=== PATIENT | male | born 1960 | race Caucasian/White ===

== ENCOUNTER → 2023-05-28 | Outpatient (CLI) | payer OTHER ==
--- NOTE | 2023-05-28 08:57 | Diagnostic Imaging Report ---
INDICATION: Right knee pain. Time of Exam: 8:49 AM FINDINGS: There is significant medial and patellofemoral compartment degenerative change with joint space narrowing and marginal spurring noted. Lateral compartments fairly well maintained. Articular surfaces are smooth. No fracture, dislocation or effusion is identified. IMPRESSION: Degenerative changes. No acute bony abnormality is detected. Dictated by: Dictated on workstation # [id number]
[2023-05-28 10:20] LABS: BASOPHILS % (AUTO) 1 % (0-10); EOSINOPHILS # (AUTO) 0.1 10^3/uL (0.0-0.3); EOSINOPHILS % (AUTO) 2 % (0-10); HEMATOCRIT 40 % (40-54); HEMOGLOBIN 14.1 g/dL (13.3-17.7); LYMPHOCYTES # (AUTO) 1.3 10^3/uL (1.0-4.0); LYMPHOCYTES % (AUTO) 23 % (12-44); MEAN CORPUSCULAR HEMOGLOBIN 33 pg (25-34); MEAN CORPUSCULAR HGB CONC 35 g/dL (32-36); MEAN CORPUSCULAR VOLUME 94 fL (80-99); MEAN PLATELET VOLUME 10.9 fL (9.0-12.2); MONOCYTES # (AUTO) 0.4 10^3/uL (0.0-1.0); MONOCYTES % (AUTO) 7 % (0-12); NEUTROPHILS % (AUTO) 68 % (42-75); PLATELET COUNT 179 10^3/uL (130-400); WHITE BLOOD COUNT 5.8 10^3/uL (4.3-11.0)
[2023-05-28 10:36] LABS: CLARITY,URINE CLEAR; COLOR,URINE YELLOW
[2023-05-28 10:37] LABS: BACTERIA,URINE NEGATIVE /HPF; BILIRUBIN,URINE NEGATIVE (NEGATIVE); GLUCOSE, URINE (UA) NEGATIVE (NEGATIVE); KETONES,URINE NEGATIVE (NEGATIVE); LEUKOCYTE ESTERASE ,URINE NEGATIVE (NEGATIVE); NITRITE,URINE NEGATIVE (NEGATIVE); PH,URINE 5.5 (5-9); PROTEIN,URINE NEGATIVE (NEGATIVE); WBC,URINE RARE /HPF
[2023-05-28 10:38] LABS: CALCIUM 9.4 MG/DL (8.5-10.1); CREATININE SERUM 1.68 MG/DL (0.60-1.30); POTASSIUM 4.6 MMOL/L (3.6-5.0)
--- NOTE | 2023-05-28 11:53 | Diagnostic Imaging Report ---
INDICATION: Preoperative evaluation prior to knee replacement COMPARISON: None FINDINGS: Frontal and lateral views of the chest demonstrate normal heart size and pulmonary vascularity. The lungs are clear. There are no signs of infiltrate, pleural effusions or pneumothoraces. The visualized osseous structures show no acute abnormalities. IMPRESSION: 1. No acute process. No signs of infiltrates, effusions or pneumothoraces. Dictated by: Dictated on workstation # [id number]
== END ==
LOC: ORTHO 08:38
PROVIDERS: ATTEND Orthopaedic Surgery
DX: Z01.89 Encounter for other specified special examinations (principal); Z01.818 Encounter for other preprocedural examination; M17.11 Unilateral primary osteoarthritis, right knee
CPT/HCPCS: 71046; 73564; 80048; 81000; 85025; G0463; 36415; 99203

== ENCOUNTER → 2023-06-08 | Outpatient (CLI) | payer OTHER ==
[~2023-06-08] VITALS: Ht 172.7 cm; Wt 97.3 kg
[~2023-06-08] MED LIST: ACET-2267 PO; ASPI-1238 PO; BETH25TA2 PO; LOSA25TA41 PO; OXC5T PO; OXYC10TA7 PO; TMSL.4C PO
[2023-06-08 13:11] VITALS: BP 144/82
== END | disposition home or self-care (01) ==
LOC: PREOP 12:57
PROVIDERS: ATTEND Orthopaedic Surgery
DX: Z01.818 Encounter for other preprocedural examination (principal)
CPT/HCPCS: 87081

== ENCOUNTER 2023-06-15 06:14 | Day surgery (SDC) | payer OTHER ==
[2023-06-15] VITALS (13 sets, daily range): BP systolic 135–189; BP diastolic 76–103
[~2023-06-15] VITALS: Ht 172.7 cm; Wt 97.3 kg
[~2023-06-15 06:14] MED LIST changes: -ACET-2267 PO; -ASPI-1238 PO; -BETH25TA2 PO; -OXC5T PO; -OXYC10TA7 PO; -TMSL.4C PO
[2023-06-15] MEDS ORDERED: LACTATED RINGERS 1,000 ML 1,000 ML IV PRN (06:30)
[2023-06-15] MEDS ORDERED: ceFAZolin INJECTION 2,000 MG in NS (IVPB) 50 ML 50 ML IV ONE (06:30)
[2023-06-15] MEDS ORDERED: fentaNYL INJECTION 100 MCG/2 ML VIAL ONE (06:34)
[2023-06-15] MEDS ORDERED: MIDAZOLAM INJ 2 MG/2 ML VIAL ONE (06:34)
[2023-06-15] MEDS ORDERED: LIDOCAINE PF 2% 5 ML VIAL ONE (06:39)
[2023-06-15] MEDS ORDERED: ROPIVACAINE 5 MG/ML 30ML VIAL ONE (06:39)
[2023-06-15] MEDS ORDERED: proPOfol INJECTION 200 MG/20 ML VIAL IV ONE ×2 (07:04→07:05)
[2023-06-15] MEDS ORDERED: ROCURONIUM 50 MG/5 ML VIAL IV ONE ×2 (07:05→07:08)
[2023-06-15] MEDS ORDERED: dexAMETHasone INJ 10 MG/ML 1 ML VIAL ONE (07:05)
[2023-06-15] MEDS ORDERED: ONDANSETRON INJECTION 4 MG/2 ML (SDV) ONE (07:05)
[2023-06-15] MEDS ORDERED: GLYCOPYRROLATE INJ 0.2 MG/ML 2 ML VIAL ONE (07:05)
[2023-06-15] MEDS ORDERED: NEOSTIGMINE 1 MG/1ML 10 ML VIAL ONE (07:05)
[2023-06-15] MEDS ORDERED: TRANEXAMIC ACID 100 MG/ML 10 ML INJECTION ONE (07:05)
--- NOTE | 2023-06-15 07:15 | Progress Note-Pre Operative ---
Pre-Operative Progress Note Date of Available H&P: May 28, 2023 Date H&P Reviewed: Jun 15, 2023 Time H&P Reviewed: 07:05 History & Physical: H&P Reviewed, Patient Examed, No changes noted Pre-Operative Diagnosis: Right Knee Primary Osteoarthritis LUIS MASSEY MD Jun 15, 2023 07:15
[2023-06-15] MEDS ORDERED: HYDROmorphone INJECTION 2 MG/ML VIAL ONE (07:54)
[2023-06-15] MEDS ORDERED: SEVOFLURANE (ULTANE) 15 ML INHAL SOLN ONE (09:19)
--- NOTE | 2023-06-15 09:33 | Operative Report - Ortho ---
Operative Report Surgeon (s)/[employer] Chemist (s) Surgeon LUIS MASSEY MD [employer] Chemist n/a Pre-Operative Diagnosis Right Knee Primary Osteoarthritis Post-Operative Diagnosis same Operative Report Date of Procedure: Jun 15, 2023 Name of Procedure Performed: Right Total Knee Arthroplasty Description & Findings After obtaining informed consent and marking the patient in the preoperative holding area, the patient did receive IV antibiotics. Patient was taken to the operating room and anesthesia was induced. Surgical timeout was taken. The right lower extremity was prepped and draped in the usual sterile fashion. Incision was made and carried down to fascia. Arthrotomy was performed on the medial side of the patella. Patella was retracted laterally and knee was flexed. Found to have circumferential osteophtye around the distal femur as well as exposed bone in the medial compartment. Hole was made in the distal femur for the intramedullary distal femoral cutting guide. Resection was made then the femur was sized as a 5. 4-in-1 block for a size [address]. Anterior cut was made and there was no notch. Posterior cut was made followed by the chamfers. Box cut was performed. Lug holes were drilled. Attention was turned to the tibial side, extramedullary tibial guide was put into place and aligned with the tibial crest. It was set to take 2 mm off of the affected medial side. Drop sedrick was used to confirm alignment. Resection was made and was parallel to the joint line. Tibial bone block was removed. Lamina non destructive evaluation specialist was put into place and the menisci and posterior osteophytes were removed. The knee was trialed with a size 5 femur and a size 5 tibia with a 9 mm poly trial. It was found to come out to full extension and flexed beyond 120 degrees. It was stable to varus and valgus stress throughout its range of motion. This was accepted. Knee was brought out into extension and the patella was measured at 20 mm of thickness and had intagt cartilage; osteophytes were removed from around the perimeter of the patella. Patella tracked well. Trial implants were removed. Tibial tray was pinned and punched. Tibial press fit guide was placed and holes were drilled. The cut bone surfaces were lavaged with pulsatile normal saline. Implants were opened and assembled on the back table. A size 5 press fit tibial component was impacted into place. Cement was mixed and applied to the implant as well as the cut bone surface. A size 5 fit femoral component was impacted into place and excess cement was removed using a freer. Tibial tray was lavaged with saline. A 9 mm thick polyethylene component was locked into placed and the locking mechanism was checked. Knee was brought into extension. Irrisept soak was performed and then, the knee was irrigated with normal saline. The knee was once again trialed; found to come to full extension, flexed beyond 120 degrees, and was stable to varus and valgus stress. Tourniquet was dropped and electrocautery was used for hemostasis. Fascial layer was closed with #2 Stratafix. The subcutaneous layer was closed with 2-0 Vicryl. The skin was closed with a running subcuticular 3-0 V-loc. Wound was dressed with steri- strips, xeroform, 4x4s, ABD, webril, and REBEL wrap. Patient tolerated the procedure well and was stable to the recovery room. Anesthesia Type General Estimated Blood Loss 100 mL Specimen(s) collected/removed None LUIS MASSEY MD Jun 15, 2023 09:33
[2023-06-15] MEDS ORDERED: MILK OF MAGNESIA 400 MG/5 ML 30 ML UDC PO PRN (09:45)
[2023-06-15] MEDS ORDERED: HYDROmorphone INJECTION 2 MG/ML VIAL IV ONE (09:45)
[2023-06-15] MEDS ORDERED: PROMETHAZINE INJ 25 MG/ML VIAL IVP PRN (09:45)
[2023-06-15] MEDS ORDERED: morphine INJ 10 MG/ML 1ML (SYR OR VIAL) IVP ONE (09:45)
[2023-06-15] MEDS ORDERED: BISACODYL 5 MG TABLET PO PRN (09:45)
--- NOTE | 2023-06-15 09:59 | Diagnostic Imaging Report ---
EXAMINATION: Right knee 1 or 2 views HISTORY: Post-Op Knee Surgery-Rt Knee replacement COMPARISON: None available. FINDINGS: Postsurgical changes from right knee arthroplasty. While Total right knee arthroplasty. No periprosthetic loosening or fracture. Subcutaneous air within the visualized soft tissue. Vascular calcifications. IMPRESSION: Well aligned total right knee arthroplasty. Dictated by: Dictated on workstation # [id number]
[2023-06-15] MEDS ORDERED: morphine INJ 4 MG/ML 1 ML (VIAL/SYRINGE) ONE (10:52)
[2023-06-15] MEDS: morphine INJ 4 MG/ML 1 ML (VIAL/SYRINGE) IVP PRN ×7 (10:55→23:39)
--- NOTE | 2023-06-15 12:25 | Consultation ---
ANA TORRES 06/15/23 1225: HPI History of Present Illness: HPI/Chief Complaint 06/15/2023: CC: R-TKA HPI: García, 63M, is in hospital due to R-TKA. He notes that he is not in pain. He is sleepy and not able to keep his eyes open for very long. He denies any N/V. He is glad that his family is his bedside. He notes some mild pruritus. He has no other concerns. He said that as he has been talking that he can feel some discomfort with his knee. He notes that the cooling device makes it feel better. Source: patient, family Date Seen 06/15/23 Attending Physician Rola Lemon PCP Admitting Physician: Attending Physician: Donal Starkey MD Referring Physician Date of Admission Home Medications & Allergies Home Medications Reviewed patient Home Medication Reconciliation performed by pharmacy medication reconciliations painting technician and/or nursing. Patients Allergies have been reviewed. Allergies Allergies Coded Allergies ondansetron (Verified Allergy, Unknown, Vomiting, 06/08/23) Past Dzaidep-Hoiqzz-Ooetmv Hx Patient Social History Marrital Status: Employed/Student: employed Tobacco Use?: No Smoking Status: Former Smoker Use of E-Cig and/or Vaping dev: No Substance use?: No Alcohol Use?: No Seasonal Allergies Seasonal Allergies: No Current Status Advance Directives: No Communicates: Verbally Primary Language: Azeri Preferred Spoken Language: Azeri Is interpretation needed?: No Sensory deficits: Vision impairment, Other (dentures ) Past Medical History Surgeries: Gallbladder, Joint Replacement Hypertension Renal Failure Arthritis Oral (posterior tongue, august 2018) What Type of Treatment Did You: Chemotherapy, Radiation, Surgical Intervention (2017 ) Anxiety Eczema (scalp ) Blood Disorders: No Adverse Reaction/Blood Tranf: No Family Medical History Cancer, Diabetes, Stroke Review of Systems Constitutional: see HPI; No diaphoresis, No fever EENTM: no symptoms reported, hoarseness; No eye pain, No tearing, No vision loss Respiratory: No cough, No short of breath, No wheezing Cardiovascular: no symptoms reported; No chest pain, No edema, No Hx of Intervention Gastrointestinal: no symptoms reported; No abdominal pain, No heartburn; loss o f appetite Genitourinary: no symptoms reported, other (indwelling catherter in place ) Musculoskeletal: see HPI, joint pain Skin: see HPI; No change in color, No dryness, No hx of skin cancer; pruritus Psychiatric/Neurological: Anxiety; Denies Headache, Denies Numbness Physical Exam Physical Exam Vital Signs Vital Signs - First Documented 06/15/23 06:15 Temp 36.3 Pulse 60 Resp 18 B/P (MAP) 145/78 (100) Pulse Ox 96 O2 Delivery Room Air Capillary Refill : Less Than 3 Seconds Height, Weight, BMI Height: '" Weight: lbs. oz. kg; 32.62 BMI Method: General Appearance: No Apparent Distress, WD/WN Eyes: Bilateral Eye Normal Inspection, Bilateral Eye PERRL, Bilateral Eye EOMI HEENT: PERRL/EOMI, Normal ENT Inspection, Pharynx Normal; No Pale Conjunctivae (L), No Pale Conjunctivae (R) Neck: Full Range of Motion, Normal Inspection, Non Tender, Supple Respiratory: Chest Non Tender, Lungs Clear, Normal Breath Sounds, No Accessory Muscle Use, No Respiratory Distress Cardiovascular: No Edema, No Gallop, No JVD, No Murmur, Normal Peripheral Pulses, Bradycardia (slow, regular rhythm ) Gastrointestinal: Normal Bowel Sounds, No Organomegaly, No Pulsatile Mass, Non Tender, Soft Rectal: Deferred Extremity: Normal Capillary Refill, Normal Inspection, Non Tender, No Calf Tenderness, No Pedal Edema Neurologic/Psychiatric: Alert, Oriented x3, No Motor/Sensory Deficits, Other (waking up from anesthesia ) Skin: Normal Color, Warm/Dry Lymphatic: No Adenopathy Results Results/Procedures Labs Patient resulted labs reviewed. Assessment/Plan Assessment and Plan Assess & Plan/Chief Complaint 06/15/2023: A/P: -Status post operative R- TKA * pain control (morphine), ice, PT/OT * follow surgeon orders, follow up * DVT prophylaxis -Bradycardia * monitor, likely due to anesthesia -HTN * Losartan, monitor vitals -DVT prophylaxis * SCD, ambulate as tolerated, MONICA Pastrana DO 06/15/232045: HPI History of Present Illness: HPI/Chief Complaint CC: Right TKA HPI: This is a 63yoWM presents to 408 s/p right TKA uncomplicated by Dr Starkey. Currently he is without complaints. Heart murmur noted but he was unaware he had a murmur. Source: patient, family Exam Limitations: no limitations Past Wtyjhzi-Xjmzab-Bjyyay Hx Patient Social History Marrital Status: Employed/Student: employed Review of Systems Constitutional: see HPI Musculoskeletal: joint pain Physical Exam Physical Exam General Appearance: No Apparent Distress, WD/WN, Chronically ill Respiratory: Lungs Clear, Normal Breath Sounds Cardiovascular: Regular Rate, Rhythm, Systolic Murmur Neurologic/Psychiatric: Alert, Oriented x3 Assessment/Plan Assessment and Plan Assess & Plan/Chief Complaint Pain control Monitor labs Supervisory-Addendum Brief Verification & Attestation Participated in pt care: history, MDM, physical Personally performed: exam, history, MDM, supervision of care Care discussed with: Medical Student Procedures: n/a Results interpretation: Verified all documentation Verification and Attestation of Medical Student E/M Service A medical student performed and documented this service in my presence. I reviewed and verified all information documented by the medical student and made modifications to such information, when appropriate. I personally performed the physical exam and medical decision making. Monica Chavez, Jun 15, 2023,20:42 ANA TORRES Jun 15, 2023 12:25 MONICA CHAVEZ DO Jun 15, 2023 20:46
[2023-06-15] MEDS: oxyCODONE IMMEDIATE RELEASE 5 MG TABLET PO PRN ×3 (13:10→21:45)
[2023-06-15] MEDS: ACETAMINOPHEN 500 MG TABLET PO PRN ×2 (13:10→19:53)
[2023-06-15] MEDS: NS IV 1000 ML 1,000 ML IV SCH ×2 (13:10→19:46)
--- NOTE | 2023-06-15 14:21 | Physical Therapy Evaluation ---
PT Evaluation-General Medical Diagnosis Admission Date June 15, 2023 Medical Diagnosis: right knee OA Onset Date: Jun 15, 2023 Therapy Diagnosis Therapy Diagnosis: impaired mobility/weakness Precautions Precautions/Isolations: Fall Prevention, Standard Precautions Referral Physician: Jaky Reason for Referral: Evaluation/Treatment Medical History Current History s/p elective right TKR Reviewed History: Yes Social History Home: Single Level Current Living Status: Spouse Entry Into Home: Stairs With Railing PT Steps Into Home: 2 Prior Prior Level of Function SCALE: Activities may be completed with or without assistive devices. 8-Hyrzhuqwry-ggplvrz completes the activity by him/herself with no assistance from a helper. 5-Set-up or Clean-up Assistance-helper sets up or cleans up; patient completes activity. [place] assists only prior to or following the activity. 4-Supervision or Touching Assistance-helper provides verbal cues and/or touching/steadying and/or contact guard assistance as patient completes activity. Assistance may be provided throughout the activity or intermittently. 3-Partial/Moderate Assistance-helper does LESS THAN HALF the effort. [place] lifts, holds or supports trunk or limbs, but provides less than half the effort. 2-Substantial/Maximal Assistance-helper does MORE THAN HALF the effort. [place] lifts or holds trunk or limbs and provides more than half the effort. 0-Otiwznhwb-dalzno does ALL the effort. Patient does none of the effort to complete the activity. Or, the assistance of 2 or more helpers is required for the patient to complete the activity. If activity was not attempted, code reason: 7-Patient Refused. 9-Not Applicable-not attempted and the patient did not perform the activity before the current illness, exacerbation or injury. 10-Not Attempted due to Environmental Limitations-(lack of equipment, weather restraints, etc.). 88-Not Attempted due to Medical Conditions or Safety Concerns. Bed Mobility: 6 Transfers (B,C,W/C): 6 Gait: 6 Stairs: 6 Indoor Mobility (Ambulation): Independent Stairs: Independent Prior Devices Use: None PT Evaluation-Current Subjective Patient agrees to PT. Family present Objective Patient Orientation: Normal For Age Attachments: Mayo Catheter, IV ROM/Strength ROM Lower Extremities right knee flexion 30 degrees/left LE WFL Strength Lower Extremities right LE 3/5 grossly/left LE 5/5 grossly Integumentary/Posture Bladder Incontinence: Mayo Cath Posture WFL Neuromuscular (Tone, Coordination, Reflexes) grossly intact Sensory Vision: Functional Hearing: Functional Transfers Sit to Lying (QC): 6 Lying to Sitting/Side of Bed(Q: 6 Sit to Stand (QC): 4 Gait Mode of Locomotion: Walk Anticipated Mode of Locomotion: Walk Walk 10 feet (QC): 4 Walk 50 ft with 2 Turns(QC): 4 Distance: 50' Gait Assistive Device: FWW Comments/Gait Description slow, antalgic Balance Sitting Static: Normal Sitting Dynamic: Normal Standing Static: Good Standing Dynamic: Good Assessment/Needs Patient will benefit from skilled PT to address functional strength and mobility to improve current LOF to safely return to home at maximum LOF. Patient's right knee AROM limited due to pain. Pain medication issued. Rehab Potential: Good PT Vault Service Mechanic Goals Vault Service Mechanic Goals PT Vault Service Mechanic Goals Time Frame: Jun 20, 2023 Roll Left & Right (QC): 6 Sit to Lying (QC): 6 Lying-Sitting on Side/Bed(QC): 6 Sit to Stand (QC): 6 Chair/Yla-hq-Fwpji Xfer(QC): 6 Toilet Transfer (QC): 6 Walk 10 feet (QC): 6 Walk 50ft with 2 Turns (QC): 6 Walk 150 ft (QC): 6 1 Step (curb) (QC): 4 4 Steps (QC): 4 PT Plan Problem List Problem List: ROM Treatment/Plan Treatment Plan: Continue Plan of Care Treatment Plan: Education, Functional Activity Aníbal, Functional Strength, Gait, Safety, Therapeutic Exercise, Transfers Treatment Duration: Jun 20, 2023 Frequency: 11 times per week Estimated Hrs Per Day: .5 hour per day Patient and/or Family Agrees t: Yes Time Time In: 1335 Time Out: 1351 DATE: Jun 15, 2023 Total Billed Treatment Time: 16 [facility] Jun 15, 2023 14:21
[2023-06-15] MEDS ORDERED: ACET-2267 PO (14:22)
--- NOTE | 2023-06-15 15:14 | Occupational Therapy Eval ---
OT Evaluation-General/PLF Medical Diagnosis Admission Date Medical Diagnosis: right knee OA Onset Date: Jun 15, 2023 Therapy Diagnosis Therapy Diagnosis: s/p RTKA Precautions Precautions/Isolations: Fall Prevention, Standard Precautions Weight Bear Status Weight Bearing Restriction: Weight Bearing/Tolerated Location Restriction: R LE Referral Physician: Jaky Referral Reason: Self Care, Evaluation/Treatment Medical History Reviewed History: Yes Social History Home: Single Level Current Living Status: Spouse Entry Into Home: Stairs With Railing Steps Into Home: 2 ADL-Prior Level of Function SCALE: Activities may be completed with or without assistive devices. 3-Qwinzlqubw-orselkn completes the activity by him/herself with no assistance from a helper. 5-Set-up or Clean-up Assistance-helper sets up or cleans up; patient completes activity. [place] assists only prior to or following the activity. 4-Supervision or Touching Assistance-helper provides verbal cues and/or touching/steadying and/or contact guard assistance as patient completes activity. Assistance may be provided throughout the activity or intermittently. 3-Partial/Moderate Assistance-helper does LESS THAN HALF the effort. [place] lifts, holds or supports trunk or limbs, but provides less than half the effort. 2-Substantial/Maximal Assistance-helper does MORE THAN HALF the effort. [place] lifts or holds trunk or limbs and provides more than half the effort. 8-Xqzfysxdv-kzolxn does ALL the effort. Patient does none of the effort to complete the activity. Or, the assistance of 2 or more helpers is required for the patient to complete the activity. If activity was not attempted, code reason: 7-Patient Refused. 9-Not Applicable-not attempted and the patient did not perform the activity before the current illness, exacerbation or injury. 10-Not Attempted due to Environmental Limitations-(lack of equipment, weather restraints, etc.). 88-Not Attempted due to Medical Conditions or Safety Concerns. Self Care: Independent Functional Cognition: Independent Drive Self: Yes OT Current Status Subjective Agreeable to therapy Pain Numeric Pain Scale: 5-Moderate Pain Location: Right Location Body Site: Knee Mental Status/Objective Patient Orientation: Person, Place, Time, Situation Attachments: IV, Polar Pack, SCD's Current Hand Dominance: Right Upper Extremity ROM BUE ROM WFLS Upper Extremity Coordination WFLS Upper Extremity Sensation WFLS Upper Extremity Strength WFLS +4/5 ADL-Treatment Eating (QC): 6 Oral Hygiene (QC): 5 Shower/Bathe Self (QC): 7 Upper Body Dressing (QC): 5 Lower Body Dressing (QC): 5 On/Off Footwear (QC): 5 Toileting Hygiene (QC): 5 Education OT Patient Education: Modified ADL techniques, Progress toward Goal/Update tx plan, Purpose of tx/functional activities, Reviewed precautions, Rehab process, Safety issues, Transfer techniques, Use of adapted equipment Teaching Recipient: Patient Teaching Methods: Demonstration Response to Teaching: Return Demonstration OT Residential Goals Residential Goals 1=Demonstrate adherence to instructed precautions during ADL tasks. 2=Patient will verbalize/demonstrate understanding of assistive devices/modifications for ADL. 3=Patient will improve strength/tolerance for activity to enable patient to perform ADL's. OT Education/Plan Problem List/Assessment Assessment: No Skilled OT Needs ID'd Discharge Recommendations Plan/Recommendations: Discontinue OT Treatment Plan/Plan of Care Patient would benefit from OT for education, treatment and training to promote independence in ADL's, mobility, safety and/or upper extremity function for ADL's. Plan of Care: OTHER (EVAL ONLY) Treatment Duration: Jun 15, 2023 Frequency: 1 time per week Estimated Hrs Per Day: .25 hour per day Agreement: Yes Rehab Potential: Good Time Start Time: 13:38 Stop Time: 13:51 DATE: Jun 15, 2023 Total Time Billed (hr/min): 13 Billed Treatment Time EVL 13 min ANETA BAIG OT Jun 15, 2023 15:14
[2023-06-15] MEDS: ASPIRIN enteric coated 81MG TABLET PO SCH (17:51)
[2023-06-15] MEDS: ceFAZolin INJECTION 2,000 MG in NS (IVPB) 50 ML 50 ML IV SCH (19:47)
[2023-06-15] MEDS: CELECOXIB 100 MG CAPSULE PO SCH (19:53)
[2023-06-15] MEDS: DOCUSATE SODIUM 100 MG CAPSULE PO SCH (20:28)
[2023-06-16] MEDS: morphine INJ 4 MG/ML 1 ML (VIAL/SYRINGE) IVP PRN ×4 (03:08→15:44)
[2023-06-16] MEDS: oxyCODONE IMMEDIATE RELEASE 5 MG TABLET PO PRN ×5 (03:08→21:59)
[2023-06-16 03:30] VITALS: BP 138/87
[2023-06-16] MEDS: ceFAZolin INJECTION 2,000 MG in NS (IVPB) 50 ML 50 ML IV SCH (05:24)
[2023-06-16 05:53] LABS: BASOPHILS % (AUTO) 0 % (0-10); EOSINOPHILS % (AUTO) 0 % (0-10); HEMATOCRIT 34 % (40-54); HEMOGLOBIN 11.7 g/dL (13.3-17.7); LYMPHOCYTES % (AUTO) 8 % (12-44); MEAN CORPUSCULAR HEMOGLOBIN 33 pg (25-34); MEAN CORPUSCULAR HGB CONC 34 g/dL (32-36); MEAN CORPUSCULAR VOLUME 96 fL (80-99); MEAN PLATELET VOLUME 11.3 fL (9.0-12.2); MONOCYTES # (AUTO) 0.9 10^3/uL (0.0-1.0); MONOCYTES % (AUTO) 7 % (0-12); NEUTROPHILS # (AUTO) 11.2 10^3/uL (1.8-7.8); NEUTROPHILS % (AUTO) 85 % (42-75); PLATELET COUNT 175 10^3/uL (130-400); WHITE BLOOD COUNT 13.2 10^3/uL (4.3-11.0)
[2023-06-16 06:15] LABS: ALBUMIN 3.5 GM/DL (3.2-4.5)
[2023-06-16 06:16] LABS: POTASSIUM 4.6 MMOL/L (3.6-5.0)
[2023-06-16 06:17] LABS: CALCIUM 8.8 MG/DL (8.5-10.1)
[2023-06-16 06:18] LABS: BAND NEUTROPHILS 1 %; LYMPHOCYTES % (MANUAL) 9 %; NEUTROPHILS % (MANUAL) 83 %; TOTAL PROTEIN 6.5 GM/DL (6.4-8.2)
[2023-06-16 06:19] LABS: MONOCYTES % (MANUAL) 6 %; RBC MORPH NORMAL
[2023-06-16 06:20] LABS: BILIRUBIN,TOTAL 0.5 MG/DL (0.1-1.0)
[2023-06-16 06:22] LABS: CREATININE SERUM 1.95 MG/DL (0.60-1.30)
[2023-06-16 07:32] VITALS: BP 172/78
[2023-06-16] MEDS: DOCUSATE SODIUM 100 MG CAPSULE PO SCH ×2 (08:00→19:55)
[2023-06-16] MEDS: CELECOXIB 100 MG CAPSULE PO SCH ×2 (08:01→19:55)
[2023-06-16] MEDS: ASPIRIN enteric coated 81MG TABLET PO SCH ×2 (08:01→17:44)
--- NOTE | 2023-06-16 08:12 | Physical Therapy Daily Note ---
PT Daily Note-Current Subjective Patient agrees to PT. Pain Numeric Pain Scale: 7 Location: Right Location Body Site: Knee Pain Description: Acute Section J - Health Conditions 1. Rarely or not at all 2. Occasionally 3. Frequently 4. Almost constantly 8. Unable to answer Pain Effect on Sleep: 1 Pain Interference with Therapy: 1 Pain Interference w/Day-to-Day: 1 Transfers SCALE: Activities may be completed with or without assistive devices. 2-Muuutanhyl-vgfcbub completes the activity by him/herself with no assistance from a helper. 5-Set-up or Clean-up Assistance-helper sets up or cleans up; patient completes activity. [place] assists only prior to or following the activity. 4-Supervision or Touching Assistance-helper provides verbal cues and/or touching /steadying and/or contact guard assistance as patient completes activity. Assistance may be provided throughout the activity or intermittently. 3-Partial/Moderate Assistance-helper does LESS THAN HALF the effort. [place] lifts, holds or supports trunk or limbs, but provides less than half the effort. 2-Substantial/Maximal Assistance-helper does MORE THAN HALF the effort. [place] lifts or holds trunk or limbs and provides more than half the effort. 4-Whmrqurgy-zjzszp does ALL the effort. Patient does none of the effort to complete the activity. Or, the assistance of 2 or more helpers is required for the patient to complete the activity. If activity was not attempted, code reason: 7-Patient Refused. 9-Not Applicable-not attempted and the patient did not perform the activity before the current illness, exacerbation or injury. 10-Not Attempted due to Environmental Limitations-(lack of equipment, weather restraints, etc.). 88-Not Attempted due to Medical Conditions or Safety Concerns. Lying to Sitting/Side of Bed(Q: 6 Sit to Stand (QC): 5 Chair/Cdh-ua-Mmxsl Xfer(QC): 5 Gait Training Distance: 250' Walk 10 feet (QC): 5 Walk 50 ft with 2 Turns(QC): 5 Walk 150 ft (QC): 5 Gait Assistive Device: FWW slow, steady, antalgic Exercises Supine Ex: Quad Set, Heel Slides, Straight leg raise Supine Reps: 15 Seated Therapy Exercises: Long arc quads Seated Reps: 15 Assessment Patient tolerated treatment well and is up in recliner with needs met. Patient improving with AROM right knee flexion/extension. Increase activity as tolerated by patient. PT Assisted Goals Assisted Goals PT Assisted Goals Time Frame: Jun 20, 2023 Roll Left & Right (QC): 6 Sit to Lying (QC): 6 Lying-Sitting on Side/Bed(QC): 6 Sit to Stand (QC): 6 Chair/Mpu-si-Rewji Xfer(QC): 6 Toilet Transfer (QC): 6 Walk 10 feet (QC): 6 Walk 50ft with 2 Turns (QC): 6 Walk 150 ft (QC): 6 1 Step (curb) (QC): 4 4 Steps (QC): 4 PT Plan Treatment/Plan Treatment Plan: Continue Plan of Care Treatment Plan: Education, Functional Activity Aníbal, Functional Strength, Gait, Safety, Therapeutic Exercise, Transfers Treatment Duration: Jun 20, 2023 Frequency: 11 times per week Estimated Hrs Per Day: .5 hour per day Patient and/or Family Agrees t: Yes Time Time In: 705 Time Out: 730 DATE: Jun 16, 2023 Total Billed Treatment Time: 25 Total Billed Treatment 1 visit EX 15 min GT 10 min STEVEN JOSE PT Jun 16, 2023 08:12
--- NOTE | 2023-06-16 08:27 | Progress Note - Ortho ---
Progress Note Subjective Date of Exam 06/16/23 Chief Complaint POD #1 R TKA HPI/Events since last exam having some difficulty with pain control, had to have catheter replaced secondary to urinary retention, has done therapy this AM Review of Systems - Allergies: Coded Allergies: ondansetron (Verified Allergy, Unknown, Vomiting, 06/08/23) Home Meds Reported Medications Acetaminophen (Tylenol Extra Strength) 500 Mg Tablet, 1500 MG PO Q8H PRN for PAIN-MILD (1-4), TAB TAKES 3 (500MG) TABS 06/15/23 Losartan Potassium (Losartan Potassium) 25 Mg Tablet, 25 MG PO DAILY, TAB 06/08/23 Objective Exam R Knee: Dressing C/D/I, +DF of ankle, no s/s of DVT Vital Signs Vital Signs Date Time Temp Pulse Resp B/P (MAP) Pulse Ox O2 Delivery O2 Flow Rate FiO2 06/16/23 08:11 Room Air 06/16/23 07:32 36.9 74 16 172/78 (109) 96 Room Air 06/16/23 03:30 36.9 71 18 138/87 (104) 96 Room Air 06/15/23 23:35 36.9 89 18 135/76 (95) 96 Room Air 06/15/23 19:47 94 Room Air 06/15/23 19:37 36.3 62 18 146/80 (102) 92 Room Air 06/15/23 16:55 36.6 64 20 150/80 (103) 95 Room Air 06/15/23 12:00 36.2 61 18 156/80 (105) 94 Room Air 06/15/23 10:42 94 Room Air 06/15/23 10:25 Room Air 06/15/23 10:25 36.0 51 18 167/82 (110) 94 Room Air 06/15/23 10:25 36.6 18 174/79 (110) 94 Room Air 06/15/23 10:20 Room Air 06/15/23 10:20 18 168/78 (108) 94 Room Air 06/15/23 10:11 Room Air 06/15/23 10:10 18 172/77 (108) 94 Room Air 06/15/23 10:02 OxyMask 3.00 06/15/23 10:00 18 189/100 (129) 100 OxyMask 3.00 06/15/23 09:54 OxyMask 6.00 06/15/23 09:50 11 189/99 (129) 100 OxyMask 6.00 06/15/23 09:45 OxyMask 6.00 06/15/23 09:40 18 173/103 (126) 99 OxyMask 6.00 06/15/23 09:35 OxyMask 6.00 06/15/23 09:35 18 189/98 (128) 100 OxyMask 6.00 06/15/23 09:25 36.2 16 178/99 (125) 100 OxyMask 6.00 06/15/23 09:25 OxyMask 6.00 I & O 06/16/23 07:00 Intake Total 3640 ml Output Total 3165 ml Balance 475 ml Lab Results Laboratory Tests 06/16/23 05:02: White Blood Count 13.2H, Red Blood Count 3.55L, Hemoglobin 11.7L, Hematocrit 34L , Mean Corpuscular Volume 96, Mean Corpuscular Hemoglobin 33, Mean Corpuscular Hemoglobin Concent 34, Red Cell Distribution Width 12.5, Platelet Count 175, Mean Platelet Volume 11.3, Immature Granulocyte % (Auto) 1, Neutrophils (%) (Auto) 85H, Lymphocytes (%) (Auto) 8L, Monocytes (%) (Auto) 7, Eosinophils (%) (Auto) 0, Basophils (%) (Auto) 0, Neutrophils # (Auto) 11.2H, Lymphocytes # (Auto) 1.0, Monocytes # (Auto) 0.9, Eosinophils # (Auto) 0.0, Basophils # (Auto) 0.0, Immature Granulocyte # (Auto) 0.1, Neutrophils % (Manual) 83, Lymphocytes % (Manual) 9, Monocytes % (Manual) 6, Band Neutrophils 1, Blood Morphology Comment NORMAL, Sodium Level 137, Potassium Level 4.6, Chloride Level 105, Carbon Dioxide Level 21, Anion Gap 11, Blood Urea Nitrogen 23H, Creatinine 1.95H, Estimat Glomerular Filtration Rate 38, BUN/Creatinine Ratio 12, Glucose Level 179H, Calcium Level 8.8, Corrected Calcium 9.2, Total Bilirubin 0.5, Aspartate Amino Transf (AST/SGOT) 33, Alanine Aminotransferase (ALT/SGPT) 49, Alkaline Phosphatase 57, Total Protein 6.5, Albumin 3.5 Imaging 2 views of the right knee dated 06/15/23 were reviewed from PACS and demonstrated total knee arthroplasty with components in good position, no complications Assessment and Plan Assessment Right Knee Primary Osteoarthritis s/p TKA Problem List Right Knee Primary Osteoarthritis s/p TKA Plan PT/OT DVT Prophylaxis Pain Control Home with home health vs outpatient therapy tomorrow Final Diagonsis Right Knee Primary Osteoarthritis s/p TKA Level of the visit: Level 3 (global) LUIS MASSEY MD Jun 16, 2023 08:27
[2023-06-16] MEDS ORDERED: BETHANECHOL 25 MG TABLET PO ONE (08:30)
[2023-06-16] MEDS: amLODIPine 5 MG TABLET PO SCH (08:52)
[2023-06-16] MEDS: TAMSULOSIN 0.4 MG (FLOMAX) CAP PO SCH ×2 (08:52→19:55)
[2023-06-16] MEDS ORDERED: LOSARTAN 25 MG TABLET PO SCH (09:00)
[2023-06-16] MEDS: BETHANECHOL 25 MG TABLET PO SCH ×3 (11:12→19:55)
[2023-06-16 11:17] VITALS: BP 130/67
--- NOTE | 2023-06-16 13:00 | Progress Note ---
ANA TORRES 06/16/23 1300: Subjective Date Seen by a Provider: Jun 16, 2023 Time Seen by a Provider: 11:00 Subjective/Events-last exam 06/16/2023: CC: R-TKA HPI: García, 63M, notes that he is feeling better post surgery on his knee. He says that there is some pain, 02/14, when he was working with PT. He notes that the pain medication is working. He also had questions about his urinary retention. He noted how the catheter was removed yesterday evening, but had to be replaced due to urinary retention. He says he has no bladder pain, but wants to know the plan. Options were discussed with patient. He is more awake and aware during this encounter. He says he has no N/V, no chest pain, and has been passing gas. He has no other concerns. Review of Systems General: No Chills, No Night Sweats, No Fatigue, No Malaise, No Appetite, No Other HEENT: No Head Aches, No Visual Changes, No Eye Pain, No Ear Pain, No Dysphasia, No Sinus Congestion, No Post Nasal Drip, No Sore Throat, No Other Pulmonary: No Dyspnea; Cough; No Pleuritic Chest Pain, No Other Cardiovascular: No: Chest Pain, Palpitations, Orthopnea, Paroxysmal Noc. Dyspnea, Edema, Lt Headedness, Other Gastrointestinal: No: Nausea, Vomiting, Abdominal Pain, Diarrhea, Constipation, Melena, Hematochezia, Other Genitourinary: No Dysuria, No Frequency, No Incontinence, No Hematuria; Retention; No Other Musculoskeletal: leg pain; No: other, neck pain, shoulder pain, arm pain, back pain, hand pain, foot pain Neurological: No: Weakness, Numbness, Incoordination, Change in speech, Confusion, Seizures, Other Objective Exam Last Set of Vital Signs Vital Signs Date Time Temp Pulse Resp B/P (MAP) Pulse Ox O2 Delivery O2 Flow Rate FiO2 06/16/23 11:17 36.4 57 16 130/67 (88) 96 Room Air 06/15/23 10:02 3.00 Capillary Refill : Less Than 3 Seconds I&O Intake and Output 06/16/23 00:00 Intake Total 1590 ml Output Total 1715 ml Balance -125 ml Intake Oral 490 ml IV Total 1100 ml Output Urine Total 1715 ml General: Alert, Oriented X3, Cooperative, No Acute Distress HEENT: PERRLA, EOMI, Mucous Memb Moist/[place] Neck: Supple, No JVD Lungs: Clear to Auscultation Heart: Regular Rate, Other (systolic murmur appreciated ) Abdomen: Normal Bowel Sounds, Soft Extremities: No Clubbing, No Edema, Normal Pulses Skin: No Rashes, No Breakdown, No Significant Lesion Neuro: Normal Speech, Normal Tone, Sensation Intact Results Lab Laboratory Tests 06/16/23 05:02: White Blood Count 13.2H, Red Blood Count 3.55L, Hemoglobin 11.7L, Hematocrit 34L , Mean Corpuscular Volume 96, Mean Corpuscular Hemoglobin 33, Mean Corpuscular Hemoglobin Concent 34, Red Cell Distribution Width 12.5, Platelet Count 175, Mean Platelet Volume 11.3, Immature Granulocyte % (Auto) 1, Neutrophils (%) (Auto) 85H, Lymphocytes (%) (Auto) 8L, Monocytes (%) (Auto) 7, Eosinophils (%) (Auto) 0, Basophils (%) (Auto) 0, Neutrophils # (Auto) 11.2H, Lymphocytes # (Auto) 1.0, Monocytes # (Auto) 0.9, Eosinophils # (Auto) 0.0, Basophils # (Auto) 0.0, Immature Granulocyte # (Auto) 0.1, Neutrophils % (Manual) 83, Lymphocytes % (Manual) 9, Monocytes % (Manual) 6, Band Neutrophils 1, Blood Morphology Comment NORMAL, Sodium Level 137, Potassium Level 4.6, Chloride Level 105, Carbon Dioxide Level 21, Anion Gap 11, Blood Urea Nitrogen 23H, Creatinine 1.95H, Estim at Glomerular Filtration Rate 38, BUN/Creatinine Ratio 12, Glucose Level 179H, Calcium Level 8.8, Corrected Calcium 9.2, Total Bilirubin 0.5, Aspartate Amino Transf (AST/SGOT) 33, Alanine Aminotransferase (ALT/SGPT) 49, Alkaline Phosph atase 57, Total Protein 6.5, Albumin 3.5 Assessment/Plan Assessment/Plan Assess & Plan/Chief Complaint 06/16/2023: A/P: -Status post operative day 1 R-TKA * pain management, F/U with Dr. Starkey * cooling apparatus * PT, ambulation as tolerated -Urinary retention * indwelling catheter placement * Urecholine, Flomax * remove catheter 06/17 at 0600 per order -CKD 3a * monitor BUN, Cr, defer to outpatient -Systolic murmur * not an acute process, defer to outpatient, monitor for changes MONICA CHAVEZ DO 06/16/232031: Subjective Subjective/Events-last exam Patient doing well Urinary retention requiring Mayo catheter reinsertion Urecholine and Flomax initiated Creatinine 1.9 We will monitor labs closely Objective Exam General: Alert, Oriented X3, Cooperative, No Acute Distress Lungs: Clear to Auscultation, Normal Air Movement Heart: Regular Rate, Normal S1, Normal S2, No Murmurs Psych/Mental Status: Mental Status NL, Mood NL Assessment/Plan Assessment/Plan Assess & Plan/Chief Complaint Urinary retention management Supervisory-Addendum Brief Verification & Attestation Participated in pt care: history, MDM, physical Personally performed: exam, history, MDM, supervision of care Care discussed with: Medical Student Procedures: n/a Results interpretation: Verified all documentation Verification and Attestation of Medical Student E/M Service A medical student performed and documented this service in my presence. I reviewed and verified all information documented by the medical student and made modifications to such information, when appropriate. I personally performed the physical exam and medical decision making. Monica Chavez Jun 16, 2023,20:31 ANA TORRES Jun 16, 2023 13:00 MONICA CHAVEZ DO Jun 16, 2023 20:32
--- NOTE | 2023-06-16 13:45 | Physical Therapy Daily Note ---
PT Daily Note-Current Subjective Patient agrees to PT. Pain Numeric Pain Scale: 8 Location: Right Location Body Site: Knee Pain Description: Acute Section J - Health Conditions 1. Rarely or not at all 2. Occasionally 3. Frequently 4. Almost constantly 8. Unable to answer Pain Effect on Sleep: 1 Pain Interference with Therapy: 1 Pain Interference w/Day-to-Day: 1 Mental Status Patient Orientation: Normal For Age Transfers SCALE: Activities may be completed with or without assistive devices. 3-Gersxfenpq-fxzonnb completes the activity by him/herself with no assistance from a helper. 5-Set-up or Clean-up Assistance-helper sets up or cleans up; patient completes activity. [place] assists only prior to or following the activity. 4-Supervision or Touching Assistance-helper provides verbal cues and/or touching/steadying and/or contact guard assistance as patient completes activity. Assistance may be provided throughout the activity or intermittently. 3-Partial/Moderate Assistance-helper does LESS THAN HALF the effort. [place] lifts, holds or supports trunk or limbs, but provides less than half the effort. 2-Substantial/Maximal Assistance-helper does MORE THAN HALF the effort. [place] lifts or holds trunk or limbs and provides more than half the effort. 9-[place] does ALL the effort. Patient does none of the effort to complete the activity. Or, the assistance of 2 or more helpers is required for the patient to complete the activity. If activity was not attempted, code reason: 7-Patient Refused. 9-Not Applicable-not attempted and the patient did not perform the activity before the current illness, exacerbation or injury. 10-Not Attempted due to Environmental Limitations-(lack of equipment, weather restraints, etc.). 88-Not Attempted due to Medical Conditions or Safety Concerns. Sit to Lying (QC): 6 Lying to Sitting/Side of Bed(Q: 6 Sit to Stand (QC): 6 Gait Training Distance: 250' Walk 10 feet (QC): 6 Walk 50 ft with 2 Turns(QC): 6 Walk 150 ft (QC): 6 Gait Assistive Device: FWW reciprocal pattern/slightly antalgic Exercises Supine Ex: Quad Set, Glut sets, Heel Slides, Straight leg raise Supine Reps: 15 Seated Therapy Exercises: Long arc quads Seated Reps: 15 Assessment Patient progressing with treatment plan and is highly motivated with progress and plans to go home tomorrow with spouse and home health. PT Correction Goals Mountain Bike Guide Goals PT Mountain Bike Guide Goals Time Frame: Jun 20, 2023 Roll Left & Right (QC): 6 Sit to Lying (QC): 6 Lying-Sitting on Side/Bed(QC): 6 Sit to Stand (QC): 6 Chair/[id number]-Bdtqo Xfer(QC): 6 Toilet Transfer (QC): 6 Walk 10 feet (QC): 6 Walk 50ft with 2 Turns (QC): 6 Walk 150 ft (QC): 6 1 Step (curb) (QC): 4 4 Steps (QC): 4 PT Plan Treatment/Plan Treatment Plan: Continue Plan of Care Treatment Plan: Education, Functional Activity Aníbal, Functional Strength, Gait, Safety, Therapeutic Exercise, Transfers Treatment Duration: Jun 20, 2023 Frequency: 11 times per week Estimated Hrs Per Day: .5 hour per day Patient and/or Family Agrees t: Yes Time Time In: 1307 Time Out: 1330 DATE: Jun 16, 2023 Total Billed Treatment Time: 23 Total Billed Treatment 1 visit EX 13 min GT 10 min STEVEN JOSE PT Jun 16, 2023 13:45
--- NOTE | 2023-06-16 14:46 | Anesthesia-General Post-Op ---
General Patient Condition Mental Status/LOC: Same as Preop Cardiovascular: Satisfactory Nausea/Vomiting: Absent Respiratory: Satisfactory Pain: Controlled Complications: Absent Post Op Complications Complications None Follow Up Care/Instructions Patient Instructions None needed. Anesthesia/Patient Condition Patient Condition Patient is doing well, no complaints, stable vital signs, no apparent adverse anesthesia problems. No complications reported per nursing. MAYRA MAE CRNA Jun 16, 2023 14:46
[2023-06-16 15:39] VITALS: BP 118/67
[2023-06-16 19:40] VITALS: BP 138/73
[2023-06-16] MEDS: ACETAMINOPHEN 500 MG TABLET PO PRN (19:55)
[2023-06-16 23:14] VITALS: BP 119/65
[2023-06-17] MEDS: morphine INJ 4 MG/ML 1 ML (VIAL/SYRINGE) IVP PRN (01:25)
[2023-06-17 04:08] VITALS: BP 122/70
[2023-06-17 06:08] LABS: BASOPHILS % (AUTO) 0 % (0-10); EOSINOPHILS % (AUTO) 0 % (0-10); HEMATOCRIT 31 % (40-54); HEMOGLOBIN 10.4 g/dL (13.3-17.7); LYMPHOCYTES # (AUTO) 1.5 10^3/uL (1.0-4.0); LYMPHOCYTES % (AUTO) 20 % (12-44); MEAN CORPUSCULAR HEMOGLOBIN 33 pg (25-34); MEAN CORPUSCULAR HGB CONC 34 g/dL (32-36); MEAN CORPUSCULAR VOLUME 96 fL (80-99); MEAN PLATELET VOLUME 11.4 fL (9.0-12.2); MONOCYTES # (AUTO) 0.6 10^3/uL (0.0-1.0); MONOCYTES % (AUTO) 9 % (0-12); NEUTROPHILS # (AUTO) 5.2 10^3/uL (1.8-7.8); NEUTROPHILS % (AUTO) 70 % (42-75); PLATELET COUNT 133 10^3/uL (130-400); WHITE BLOOD COUNT 7.4 10^3/uL (4.3-11.0)
[2023-06-17] MEDS: BETHANECHOL 25 MG TABLET PO SCH ×2 (06:11→11:36)
[2023-06-17] MEDS: oxyCODONE IMMEDIATE RELEASE 5 MG TABLET PO PRN ×2 (06:12→11:36)
[2023-06-17 06:17] LABS: ALBUMIN 3.1 GM/DL (3.2-4.5); POTASSIUM 3.6 MMOL/L (3.6-5.0)
[2023-06-17 06:20] LABS: TOTAL PROTEIN 5.8 GM/DL (6.4-8.2)
[2023-06-17 06:22] LABS: BILIRUBIN,TOTAL 0.5 MG/DL (0.1-1.0)
[2023-06-17 06:23] LABS: CREATININE SERUM 1.85 MG/DL (0.60-1.30)
[2023-06-17 07:58] VITALS: BP 111/66
[2023-06-17] MEDS ORDERED: ASPI-1238 PO (08:37)
[2023-06-17] MEDS ORDERED: OXC5T PO (08:37)
[2023-06-17] MEDS ORDERED: OXYC10TA7 PO (08:38)
--- NOTE | 2023-06-17 08:42 | Discharge Summary ---
Discharge Summary Hospital Course Hospital Course Date of Admission: 06/15/23 Admission Diagnosis : Right Knee Primary Osteoarthritis Family Physician/Provider: Rola Lemon Date of Discharge: 06/17/23 Discharge Diagnosis: [Right Knee Primary Osteoarthritis s/p TKA ] Hospital Course: [ On 06/15/23, patient underwent right total knee arthroplasty. Tolerated the procedure well and was transferred to the regular floor. On the day of surgery, began mechanical DVT prophylaxis and started to work with therapy. On POD #1, made good progress with therapy and began chemical DVT prophylaxis. On POD #2, continued to make progress with therapy and home health therapy arrangements were made. Patient was ready for discharge home.] Labs and Pending Lab Test: Laboratory Tests 06/17/23 05:25: White Blood Count 7.4, Red Blood Count 3.18L, Hemoglobin 10.4L, Hematocrit 31L, Mean Corpuscular Volume 96, Mean Corpuscular Hemoglobin 33, Mean Corpuscular Hemoglobin Concent 34, Red Cell Distribution Width 12.7, Platelet Count 133, Mean Platelet Volume 11.4, Immature Granulocyte % (Auto) 0, Neutrophils (%) (Auto) 70, Lymphocytes (%) (Auto) 20, Monocytes (%) (Auto) 9, Eosinophils (%) (Auto) 0, Basophils (%) (Auto) 0, Neutrophils # (Auto) 5.2, Lymphocytes # (Auto) 1.5, Monocytes # (Auto) 0.6, Eosinophils # (Auto) 0.0, Basophils # (Auto) 0.0, Immature Granulocyte # (Auto) 0.0, Sodium Level 138, Potassium Level 3.6, Chloride Level 105, Carbon Dioxide Level 24, Anion Gap 9, Blood Urea Nitrogen 23H, Creatinine 1.85H, Estimat Glomerular Filtration Rate 40, BUN/Creatinine Ratio 12, Glucose Level 197H, Calcium Level 8.0L, Corrected Calcium 8.7, Total Bilirubin 0.5, Aspartate Amino Transf (AST/SGOT) 20, Alanine Aminotransferase (ALT/SGPT) 24, Alkaline Phosphatase 49, Total Protein 5.8L, Albumin 3.1L Home Meds Active Oxycodone HCl 10 Mg Tablet 10 Mg PO Q4H 7 Days Aspirin EC (Aspirin) 81 Mg Tablet.dr 81 Mg PO BID WITH MEALS 14 Days Reported Tylenol Extra Strength (Acetaminophen) 500 Mg Tablet 1,500 Mg PO Q8H PRN TAKES 3 (500MG) TABS Losartan Potassium 25 Mg Tablet 25 Mg PO DAILY Assessment/Pt Instructions WBAT on right leg; use walker for assist. Dry dressing daily to incision site; do not get incision wet. Home health therapy for motion/strengthening/gait training. F/U with Dr. Donal Starkey ~2 weeks after surgery. Discharge Physical Examination Vital Signs Vital Signs Date Time Temp Pulse Resp B/P (MAP) Pulse Ox O2 Delivery O2 Flow Rate FiO2 06/17/23 07:58 37.1 75 19 111/66 (81) 95 Room Air 06/15/23 10:02 3.00 Extremity: Other (R Knee: Incision C/D/I, +DF of ankle, no s/s of DVT) Allergies: Coded Allergies: ondansetron (Verified Allergy, Unknown, Vomiting, 06/08/23) Discharge Summary Date of Admission Date of Discharge DONAL STARKEY MD Jun 17, 2023 08:42
--- NOTE | 2023-06-17 08:43 | D/C HH Face to Face Order ---
D/C Face to Face Orders Instructions for Patient Via [facility], Patient Instructions/FollowUp: WBAT on right leg; use walker for assist. Dry dressing daily to incision site; do not get incision wet. Home health therapy for motion/strengthening/gait training. F/U with Dr. Donal Starkey ~2 weeks after surgery. Physician to follow Patient: Donal Starkey Discharge Diet for Home: No Restrictions Patient Data-Allergies,Ht & Wt Patient Allergies: Coded Allergies: ondansetron (Verified Allergy, Unknown, Vomiting, 06/08/23) Home Health Need/Face to Face Date of Face to Face: Jun 17, 2023 Clinical Findings: Muscle weakness, Pain with ambulation I have seen Pt [id number]: Yes Discharged To: Home Diagnosis/Conditions: Right Knee Osteoarthritis s/p TKA Patient is Homebound due to: Muscle weakness, Pain w/ambulation Homebound Status Due to the above stated illness, injury or surgical procedure (medical condition or diagnosis) and associated clinical findings, the patient is homebound because of his/her inability to leave home except with aid of a supportive device and/or person AND leaving the home requires a considerable and taxing effort or is medically contraindicated. Pt req the following assistanc: Walker Home Health Nursing Orders Home Health Services Order: Physical Therapy-Evaluate & Treat Home Health Infusion Therapy Line Start Date: Jun 15, 2023 Therapy Orders Therapy Specific Orders: Gait training, Increase strength/endurance, Restore ROM Certify Stmt I certify that this patient is under my care and that I, a nurse practitioner or a physician; a law office assistant working with me, had a face to face encounter that - meets the physician face to face encounter requirements with this patient as dated. DONAL STARKEY MD Jun 17, 2023 08:43
[2023-06-17] MEDS: ASPIRIN enteric coated 81MG TABLET PO SCH (09:05)
[2023-06-17] MEDS: CELECOXIB 100 MG CAPSULE PO SCH (09:05)
[2023-06-17] MEDS: TAMSULOSIN 0.4 MG (FLOMAX) CAP PO SCH (09:06)
[2023-06-17] MEDS: amLODIPine 5 MG TABLET PO SCH (09:06)
[2023-06-17] MEDS: DOCUSATE SODIUM 100 MG CAPSULE PO SCH (09:06)
--- NOTE | 2023-06-17 09:48 | Progress Note ---
ANA TORRES 06/17/23 0948: Subjective Date Seen by a Provider: Jun 17, 2023 Time Seen by a Provider: 09:10 Subjective/Events-last exam 06/17/2023: CC: R-TKA HPI: García, 63M, notes that he is feeling better. He says that PT was difficult but good. He is working on going up steps and said it was okay, but uncomfortable. He notes that it isn't painful, just sore. He denies any throbbing pain or issues. He does endorse some swelling in the R-knee region. He says that Dr. Starkey saw him and the plan is to return home. García was experiencing urinary retention on 06/16 that required a urinary catheter, but today it was removed at 0600. García notes that he urinated without the catheter. He says that he urinated "lots" and that it was yellow and clear. He is glad that he was able to urinate. He also denies a BM but notes that this is normal and that he has been passing a lot of gas. No other concerns. Pain is well managed. Review of Systems General: No Chills, No Night Sweats, No Fatigue, No Malaise, No Appetite, No Other HEENT: No Head Aches, No Visual Changes, No Eye Pain, No Ear Pain, No Dysphasia, No Sinus Congestion, No Post Nasal Drip, No Sore Throat, No Other Pulmonary: No Dyspnea, No Cough, No Pleuritic Chest Pain, No Other Cardiovascular: No: Chest Pain, Palpitations, Orthopnea, Paroxysmal Noc. Dyspnea, Edema, Lt Headedness, Other Gastrointestinal: Constipation; No: Nausea, Vomiting, Abdominal Pain, Diarrhea, Melena, Hematochezia, Other Genitourinary: No Dysuria, No Frequency, No Incontinence, No Hematuria, No Retention, No Other Musculoskeletal: leg pain; No: other, neck pain, shoulder pain, arm pain, back pain, hand pain, foot pain Neurological: No: Weakness, Numbness, Incoordination, Change in speech, Confusion, Seizures, Other Objective Exam Last Set of Vital Signs Vital Signs Date Time Temp Pulse Resp B/P (MAP) Pulse Ox O2 Delivery O2 Flow Rate FiO2 06/17/23 08:56 Room Air 06/17/23 07:58 37.1 75 19 111/66 (81) 95 06/15/23 10:02 3.00 Capillary Refill : Less Than 3 Seconds I&O Intake and Output 06/17/23 00:00 Intake Total 4690 ml Output Total 5050 ml Balance -360 ml Intake Oral 3640 ml IV Total 1050 ml Output Urine Total 5050 ml General: Alert, Oriented X3, Cooperative, No Acute Distress HEENT: Atraumatic, EOMI, Mucous Memb Moist/[place] Neck: Supple, No JVD Lungs: Clear to Auscultation, Normal Air Movement Heart: Regular Rate, Other (systolic murmur noted ) Abdomen: Normal Bowel Sounds, No Tenderness Extremities: No Clubbing, No Cyanosis, No Edema, Normal Pulses Skin: No Rashes, No Breakdown, No Significant Lesion Neuro: Normal Speech, Normal Tone, Sensation Intact Results Lab Laboratory Tests 06/17/23 05:25: White Blood Count 7.4, Red Blood Count 3.18L, Hemoglobin 10.4L, Hematocrit 31L, Mean Corpuscular Volume 96, Mean Corpuscular Hemoglobin 33, Mean Corpuscular Hemoglobin Concent 34, Red Cell Distribution Width 12.7, Platelet Count 133, Mean Platelet Volume 11.4, Immature Granulocyte % (Auto) 0, Neutrophils (%) (Auto) 70, Lymphocytes (%) (Auto) 20, Monocytes (%) (Auto) 9, Eosinophils (%) (Auto) 0, Basophils (%) (Auto) 0, Neutrophils # (Auto) 5.2, Lymphocytes # (Auto) 1.5, Monocytes # (Auto) 0.6, Eosinophils # (Auto) 0.0, Basophils # (Auto) 0.0, Immature Granulocyte # (Auto) 0.0, Sodium Level 138, Potassium Level 3.6, Chloride Level 105, Carbon Dioxide Level 24, Anion Gap 9, Blood Urea Nitrogen 23H, Creatinine 1.85H, Estimat Glomerular Filtration Rate 40, BUN/Creatinine Ratio 12, Glucose Level 197H, Calcium Level 8.0L, Corrected Calcium 8.7, Total Bilirubin 0.5, Aspartate Amino Transf (AST/SGOT) 20, Alanine Aminotransferase (ALT/SGPT) 24, Alkaline Phosphatase 49, Total Protein 5.8L, Albumin 3.1L Assessment/Plan Assessment/Plan Assess & Plan/Chief Complaint 06/17/2023: A/P: -Status post operative day 2 R-TKA * pain management, F/U with Dr. Starkey * PT, ambulation as tolerated * D/C to home -CKD 3a * monitor BUN, Cr, defer to outpatient -Systolic murmur * not an acute process, defer to outpatient, monitor for changes -Urinary Retention * resolved, pt urinating spontaneously without incontinence MONICA CHAVEZ DO 06/17/233: Subjective Subjective/Events-last exam Catheter discontinued and now voiding well We will send home on Flomax and Urecholine Objective Exam General: Alert, Oriented X3, Cooperative, No Acute Distress Assessment/Plan Assessment/Plan Assess & Plan/Chief Complaint Sent home on Flomax and Urecholine Supervisory-Addendum Brief Verification & Attestation Participated in pt care: history, MDM, physical Personally performed: exam, history, MDM, supervision of care Care discussed with: Medical Student Procedures: n/a Results interpretation: Verified all documentation Verification and Attestation of Medical Student E/M Service A medical student performed and documented this service in my presence. I reviewed and verified all information documented by the medical student and made modifications to such information, when appropriate. I personally performed the physical exam and medical decision making. Monica Chavez Jun 17, 2023,21:03 ANA TORRES Jun 17, 2023 09:48 MONICA CHAVEZ DO Jun 17, 2023 21:03
--- NOTE | 2023-06-17 10:51 | Physical Therapy Daily Note ---
PT Daily Note-Current Subjective Patient sitting in chair upon PT arrival, agreeable to treatment. Patient rates pain at 4/10 in right knee. Pain Section J - Health Conditions 1. Rarely or not at all 2. Occasionally 3. Frequently 4. Almost constantly 8. Unable to answer Pain Effect on Sleep: 1 Pain Interference with Therapy: 1 Pain Interference w/Day-to-Day: 1 Transfers SCALE: Activities may be completed with or without assistive devices. 2-Lffxfhxmjj-oleivab completes the activity by him/herself with no assistance from a helper. 5-Set-up or Clean-up Assistance-helper sets up or cleans up; patient completes activity. Copen assists only prior to or following the activity. 4-Supervision or Touching Assistance-helper provides verbal cues and/or touching/steadying and/or contact guard assistance as patient completes activity. Assistance may be provided throughout the activity or intermittently. 3-Partial/Moderate Assistance-helper does LESS THAN HALF the effort. Copen li fts, holds or supports trunk or limbs, but provides less than half the effort. 2-Substantial/Maximal Assistance-helper does MORE THAN HALF the effort. Copen lifts or holds trunk or limbs and provides more than half the effort. 4-Vvogamnsy-gnzmvy does ALL the effort. Patient does none of the effort to complete the activity. Or, the assistance of 2 or more helpers is required for the patient to complete the activity. If activity was not attempted, code reason: 7-Patient Refused. 9-Not Applicable-not attempted and the patient did not perform the activity before the current illness, exacerbation or injury. 10-Not Attempted due to Environmental Limitations-(lack of equipment, weather restraints, etc.). 88-Not Attempted due to Medical Conditions or Safety Concerns. Sit to Stand (QC): 4 Chair/Atb-hm-Rqdyq Xfer(QC): 4 Gait Training Does the Patient Walk?: Yes Distance: 350' Walk 10 feet (QC): 4 Walk 50 ft with 2 Turns(QC): 4 Walk 150 ft (QC): 4 Gait Assistive Device: FWW Stair Training Stair Training: Handrails/: No handrail, uses walker #of Steps: 1 1 Step (curb) (QC): 4 Stairs: Pattern: Step to Assessment Current Status: Fair Progress Patient tolerated treatment well. Performs all observed transfers with SBA. Patient ambulates 350 feet with FWW, with SBA and verbal cues for gait pattern, posture and safety. Patient ascends/descends 1 step with SBA and verbal cues with FWW. Patient in chair post treatment with all needs met, nursing notified, call light in hand. PT Credit Assessment Analyst Goals Correction Goals PT Correction Goals Time Frame: Jun 20, 2023 Roll Left & Right (QC): 6 Sit to Lying (QC): 6 Lying-Sitting on Side/Bed(QC): 6 Sit to Stand (QC): 6 Chair/Nfz-hl-Ooylg Xfer(QC): 6 Toilet Transfer (QC): 6 Walk 10 feet (QC): 6 Walk 50ft with 2 Turns (QC): 6 Walk 150 ft (QC): 6 1 Step (curb) (QC): 4 4 Steps (QC): 4 PT Plan Treatment/Plan Treatment Plan: Continue Plan of Care Treatment Plan: Education, Functional Activity Aníbal, Functional Strength, Gait, Safety, Therapeutic Exercise, Transfers Treatment Duration: Jun 20, 2023 Frequency: 11 times per week Estimated Hrs Per Day: .5 hour per day Patient and/or Family Agrees t: Yes Safety Risks/Education Patient Education: Gait Training, Transfer Techniques, Steps Teaching Recipient: Patient Teaching Methods: Demonstration, Discussion Response to Teaching: Verbalize Understanding, Return Demonstration Time Time In: 830 Time Out: 848 DATE: Jun 17, 2023 Total Billed Treatment Time: 18 Total Billed Treatment Visit, GT [facility] PT Jun 17, 2023 10:51
[2023-06-17] MEDS ORDERED: TMSL.4C PO (11:45)
[2023-06-17] MEDS ORDERED: BETH25TA2 PO (11:45)
[2023-06-17 12:09] VITALS: BP 120/8
== END 2023-06-17 13:10 | disposition home health service (06) ==
LOC: SDC 06:14 → EDSTATUS 07:30 → 4TH 10:24 → SDC 06-17 13:10
PROVIDERS: ATTEND Orthopaedic Surgery
DX: N18.31 Chronic kidney disease, stage 3a (principal); M17.11 Unilateral primary osteoarthritis, right knee; R01.1 Cardiac murmur, unspecified; R33.9 Retention of urine, unspecified; I12.0 Hypertensive chronic kidney disease with stage 5 chronic kidney disease or end stage renal disease; Z85.810 Personal history of malignant neoplasm of tongue; R00.1 Bradycardia, unspecified; F17.290 Nicotine dependence, other tobacco product, uncomplicated
CPT/HCPCS: 27447; 73560; 93005; 94664; 97110; 97116; 97162; 97166; C1713 ×2; C1776 ×3; 36415; 80053; 85025

== ENCOUNTER → 2023-06-30 | Outpatient (CLI) | payer OTHER ==
[~2023-06-30] MED LIST changes: +ACET-2267 PO; +ASPI-1238 PO; +BETH25TA2 PO; +OXC5T PO; +OXYC10TA7 PO; +TMSL.4C PO
== END ==
LOC: ORTHO 10:49
PROVIDERS: ATTEND Orthopaedic Surgery
DX: Z47.89 Encounter for other orthopedic aftercare (principal); M17.11 Unilateral primary osteoarthritis, right knee; Z96.651 Presence of right artificial knee joint

== ENCOUNTER → 2023-07-28 | Outpatient (CLI) | payer OTHER ==
--- NOTE | 2023-07-28 13:42 | Diagnostic Imaging Report ---
Indication: Postop right knee arthroplasty AP and lateral views the right knee are obtained. COMPARISON: 06/15/2023 There is a well aligned right knee prosthesis. There is no sign of fracture or device loosening. There is no acute bony abnormality. Impression: Well aligned right knee prosthesis with no acute abnormality. Dictated by: Dictated on workstation # [id number]
== END ==
LOC: ORTHO 09:43
PROVIDERS: ATTEND Orthopaedic Surgery
DX: Z09 Encounter for follow-up examination after completed treatment for conditions other than malignant neoplasm (principal); Z96.651 Presence of right artificial knee joint
CPT/HCPCS: 73560